=== PATIENT | female | born 1990 ===

== ENCOUNTER 2017-10-20 14:00 | Inpatient (IN) | payer OTHER ==
[~2017-10-20] VITALS: Ht 160 cm; Wt 69.4 kg
[2017-11-06] MEDS ORDERED: PRENATAL TABLE1 EAC2 PO (07:46)
[2017-11-06] MEDS ORDERED: [UNRECOGNIZED DRUG - OTHER] PO (07:47)
[2017-11-06] MEDS ORDERED: DEXTROAMPHETAMI10 M1 PO (07:48)
== END 2017-11-08 13:12 | disposition home or self-care (01) | DRG 775 ==
LOC: SURH 11-03 14:00 → LDR 11-06 06:21 → OB/GYN 11-06 13:58
PROC: 10E0XZZ Delivery of Products of Conception, External Approach (ICD-10-PCS; principal; 2017-11-06)
PROC: 0HQ9XZZ Repair Perineum Skin, External Approach (ICD-10-PCS; 2017-11-06)
PROC: 3E0P7VZ Introduction of Hormone into Female Reproductive, Via Natural or Artificial Opening (ICD-10-PCS; 2017-11-06)
PROC: 3E033VJ Introduction of Other Hormone into Peripheral Vein, Percutaneous Approach (ICD-10-PCS; 2017-11-06)
PROC: 10907ZC Drainage of Amniotic Fluid, Therapeutic from Products of Conception, Via Natural or Artificial Opening (ICD-10-PCS; 2017-11-06)
PROC: 4A033R1 Measurement of Arterial Saturation, Peripheral, Percutaneous Approach (ICD-10-PCS; 2017-11-06)
PROC: 4A1HXCZ Monitoring of Products of Conception, Cardiac Rate, External Approach (ICD-10-PCS; 2017-11-06)
DX: O70.0 First degree perineal laceration during delivery (principal); Z3A.40 40 weeks gestation of pregnancy; Z37.0 Single live birth

== ENCOUNTER → 2020-07-06 | Outpatient (CLI) | payer OTHER ==
[~2020-07-06] MED LIST: DEXTROAMPHETAMI10 M1 PO; PRENATAL TABLE1 EAC2 PO; [UNRECOGNIZED DRUG - OTHER] PO
== END | disposition home or self-care (01) ==
LOC: OFIC 805 13:00
PROVIDERS: ATTEND Otolaryngology
DX: H61.122 Hematoma of pinna, left ear (principal); H60.8X2 Other otitis externa, left ear; H90.42 Sensorineural hearing loss, unilateral, left ear, with unrestricted hearing on the contralateral side; H61.23 Impacted cerumen, bilateral

== ENCOUNTER → 2020-07-15 | Outpatient (CLI) | payer OTHER | END | disposition home or self-care (01) | LOC: OFIC 805 09:45 | PROVIDERS: ATTEND Otolaryngology | DX: H60.8X2 Other otitis externa, left ear (principal); H91.8X2 Other specified hearing loss, left ear; S00.432A Contusion of left ear, initial encounter ==

== ENCOUNTER 2021-08-22 06:49 | Inpatient (IN) | payer OTHER ==
[~2021-08-22] VITALS: Ht 162.6 cm; Wt 72.6 kg
== END 2021-08-25 18:16 | disposition home or self-care (01) | DRG 807 ==
LOC: LDR 06:49 → OB/GYN 12:16
PROVIDERS: ADMIT Specialist; ATTEND Specialist
PROC: 10E0XZZ Delivery of Products of Conception, External Approach (ICD-10-PCS; principal; 2021-08-22)
PROC: 4A1HXCZ Monitoring of Products of Conception, Cardiac Rate, External Approach (ICD-10-PCS; 2021-08-22)
DX: O80 Encounter for full-term uncomplicated delivery (principal); Z37.0 Single live birth; Z3A.39 39 weeks gestation of pregnancy